=== PATIENT | male | born 1955 | race American Indian/Alaskan Native ===

== ENCOUNTER 2016-12-06 19:02 | Outpatient (CLI) | payer MEDICAID ==
--- NOTE | 2016-12-07 09:44 | XRay Report ---
Lumbar spine 4 views: History: Neck pain. Findings: Normal height of vertebral bodies. Minimal decrease in height of the L3-4 L4-L5 and L5-S1. Sclerotic articular surfaces with peripheral osteophytes suggesting of degenerative changes. Calcified abdominal aorta with suspicion of aneurysm. Impression: Degenerative lumbar spine. Suspicion of abdominal aortic aneurysm.
== END 2016-12-06 19:03 | disposition home or self-care (01) ==
LOC: XRAY 19:02
PROVIDERS: ATTEND Surgery Vascular Surgery
DX: M25.78 Osteophyte, vertebrae (principal); I70.0 Atherosclerosis of aorta
CPT/HCPCS: 72110

== ENCOUNTER 2019-11-04 10:51 | Outpatient (CLI) | payer MEDICARE ==
[2019-11-04 12:23] LABS: Blood Urea Nitrogen 13 mg/dL (9-20)
--- NOTE | 2019-11-04 14:18 | Cat Scan Report ---
CT abdomen pelvis wo/w con INDICATION: MALIGNANT NEOPLASM OF PROSTATE. TECHNIQUE: All CT scans at this location are performed using CT dose reduction for ALARA by means of automated e xposure control. COMPARISON: None available. FINDINGS: Images through the lung bases show COPD but no acute disease. Imaging of the upper abdomen was perfor med before contrast enhancement of the liver, but no obvious liver lesions are identified. Gallbladde r, spleen, pancreas, kidneys and adrenals are negative. Abdominal aorta is atherosclerotic but normal in size. No adenopathy. Pelvis Normal appendix. Very extensive sigmoid diverticulosis but no CT evidence of diverticulitis. Prostate is minimally enlarged but otherwise negative. Urinary bladder and distal ureters are unremarkable. S eminal vesicles appear negative. No pelvic adenopathy. No significant skeletal lesions. IMPRESSION: 1. No evidence of metastasis. Signer Name: Gerard Hatfield MD Signed: 11/04/2019 2:14 PM Workstation Name: [id number]
== END 2019-11-04 10:52 | disposition home or self-care (01) ==
LOC: CT 10:51
PROVIDERS: ATTEND Urology
DX: K57.30 Diverticulosis of large intestine without perforation or abscess without bleeding (principal); J44.9 Chronic obstructive pulmonary disease, unspecified; C61 Malignant neoplasm of prostate
CPT/HCPCS: 36415; 74178; 82565; 84520; Q9967